=== PATIENT | female | born 1970 | race Two or more races ===

== ENCOUNTER 2023-05-09 10:56 | Emergency (ER) | payer MEDICAID ==
[~2023-05-09] VITALS: Ht 165.1 cm; Wt 85.7 kg
[2023-05-09 11:06] VITALS: BP 132/67; TEMP 98.4; O2SAT 100
[2023-05-09] MEDS ORDERED: PSEU120T83 PO (11:16)
== END 2023-05-09 12:02 | disposition home or self-care (01) ==
LOC: ER 10:59
DX: J06.9 Acute upper respiratory infection, unspecified (principal); H69.82 Other specified disorders of Eustachian tube, left ear

== ENCOUNTER 2024-09-21 21:41 | Emergency (ER) | payer MEDICAID ==
[~2024-09-21] VITALS: Ht 157.5 cm; Wt 81.6 kg
[~2024-09-21 21:41] MED LIST: PSEU120T83 PO
[2024-09-21 23:59] VITALS: BP 139/93; TEMP 97.8; O2SAT 99
[2024-09-22] MEDS ORDERED: TDAP [DIPH/PERTUSSIS/TET] 0.5 ML VIAL IM ONE (01:30)
[2024-09-22] MEDS ORDERED: ACETAMINOPHEN 325 MG TABLET ONE (01:30)
[2024-09-22] MEDS: LIDOCAINE 1% INJ 50 ML MDV IJ ONE (01:30)
[2024-09-22] MEDS: TDAP [DIPH/PERTUSSIS/TET] 0.5 ML VIAL IM ONE (01:35)
[2024-09-22] MEDS: ACETAMINOPHEN 325 MG TABLET PO ONE (01:35)
[2024-09-22] MEDS ORDERED: CEFA500C PO (03:25)
== END 2024-09-22 03:46 | disposition home or self-care (01) ==
LOC: ER 21:50
DX: S61.012A Laceration without foreign body of left thumb without damage to nail, initial encounter (principal); W26.8XXA Contact with other sharp object(s), not elsewhere classified, initial encounter; Y93.89 Activity, other specified; Y92.89 Other specified places as the place of occurrence of the external cause; Y99.8 Other external cause status
CPT/HCPCS: 90715

== ENCOUNTER 2024-10-12 09:13 | Emergency (ER) | payer MEDICAID ==
[~2024-10-12] VITALS: Ht 167.6 cm; Wt 81.6 kg
[~2024-10-12 09:13] MED LIST changes: +CEFA500C PO
[2024-10-12 09:18] VITALS: BP 135/61; TEMP 98.3
[2024-10-12 09:36] VITALS: O2SAT 97
== END 2024-10-12 09:36 | disposition home or self-care (01) ==
LOC: ER 09:15
DX: S61.012D Laceration without foreign body of left thumb without damage to nail, subsequent encounter (principal); Z48.02 Encounter for removal of sutures; X58.XXXD Exposure to other specified factors, subsequent encounter